=== PATIENT | male | born 1975 | race Caucasian/White ===

== ENCOUNTER → 2017-03-07 | Outpatient (CLI) | payer BC | END | disposition home or self-care (01) | LOC: RAD 11:02 | PROVIDERS: ATTEND Family Medicine | DX: I77.6 Arteritis, unspecified (principal) | CPT/HCPCS: 93882 ==

== ENCOUNTER → 2020-05-13 | Outpatient (CLI) | payer BC, MEDICAID ==
[~2020-05-13] MED LIST: ACET-1600 PO
[2020-05-13 11:00] LABS: ALBUMIN 4.4 g/dL (3.4-5.0); ANION GAP 7 mmol/L (5-15); CALCIUM 9.8 mg/dL (8.5-10.1); CHLORIDE 110 mmol/L (98-107)
[2020-05-13 11:02] LABS: BASOPHILS % (AUTO) 1 % (0-1); EOSINOPHILS % (AUTO) 0 % (1-7); LYMPHOCYTES % (AUTO) 23 % (22-44); MEAN CORPUSCULAR HEMOGLOBIN 31.9 pg (27.5-34.5); MEAN CORPUSCULAR HGB CONC 35.6 g/dL (33.2-36.2); MEAN PLATELET VOLUME 9.1 fL (7.4-10.4); MONOCYTES % (AUTO) 7 % (2-9); NEUTROPHILS % (AUTO) 69 % (42-75); PLATELET COUNT 326 x10^3/uL (130-400); RED BLOOD COUNT 5.37 x10^6/uL (4.38-5.82); RED CELL DISTRIBUTION WIDTH 13.7 % (9.4-14.8)
[2020-05-13 11:05] LABS: ALANINE AMINOTRANSFERASE 52 U/L (12-78); ALKALINE PHOSPHATASE 97 U/L (45-117); BILIRUBIN,TOTAL 0.6 mg/dL (0.2-1.0); TOTAL PROTEIN 7.9 g/dL (6.4-8.2)
[2020-05-13 11:06] LABS: MD NO
== END | disposition home or self-care (01) ==
LOC: STAR 09:21
PROVIDERS: ATTEND Colon & Rectal Surgery
DX: Z01.812 Encounter for preprocedural laboratory examination (principal); Z20.822 Contact with and (suspected) exposure to COVID-19
CPT/HCPCS: 80053; 85025; 87635; 93005

== ENCOUNTER 2020-05-19 09:25 | Inpatient (IN) | payer BC, MEDICAID ==
[~2020-05-19] VITALS: Ht 175.3 cm; Wt 70.7 kg
[2020-05-19] MEDS ORDERED: CHLORHEXIDINE 15 ML UDC MM STA (09:47)
[2020-05-19] MEDS ORDERED: CHLORHEXIDINE 15 ML UDC ONE (09:54)
[2020-05-19] MEDS ORDERED: LACTATED RINGERS 1,000 ML IV SCH ×2 (10:00→20:00)
[2020-05-19] MEDS ORDERED: FENTANYL PF 250 MCG/5ML ONE (13:06)
[2020-05-19] MEDS ORDERED: MIDAZOLAM 1 MG/ML, 2ML ONE (13:06)
[2020-05-19] MEDS ORDERED: INDOCYANINE GREEN 25 MG VIAL ONE (13:50)
[2020-05-19] MEDS ORDERED: BUPIVACAINE/PF 0.5% ONE (13:50)
[2020-05-19] MEDS ORDERED: hydrALAzine 20 MG/ML, 1ML ONE ×2 (14:15→15:05)
[2020-05-19] MEDS ORDERED: PROPOFOL 10 MG/ML, 20ML ONE (14:15)
[2020-05-19] MEDS ORDERED: DEXAMETHASONE 4 MG/ML, 1ML ONE ×2 (14:34)
[2020-05-19] MEDS ORDERED: CEFOTETAN 1 GM ONE ×2 (14:36)
[2020-05-19] MEDS ORDERED: ROCURONIUM 10MG/ML,5ML ONE ×2 (14:40)
[2020-05-19] MEDS ORDERED: PROMETHAZINE 25 MG/ML, 1ML IVPush PRN (15:30)
[2020-05-19] MEDS ORDERED: OXYcodone 5 MG/5 ML ORAL.SOL UDC PO PRN (15:30)
[2020-05-19] MEDS ORDERED: LABETALOL 5MG/ML, 20ML IV PRN (15:30)
[2020-05-19] MEDS ORDERED: hydrALAzine 20 MG/ML, 1ML IV PRN (15:30)
[2020-05-19] MEDS ORDERED: MEPERIDINE/PF 25MG/0.5ML IVPush PRN (15:30)
[2020-05-19] MEDS ORDERED: ACETAMINOPHEN 325 MG TABLET PO PRN (15:30)
[2020-05-19] MEDS ORDERED: ONDANSETRON 2MG/ML, 2ML IVPush PRN (15:30)
[2020-05-19] MEDS ORDERED: BUPIVACAINE/PF 0.25% ONE ×2 (16:05)
[2020-05-19] MEDS ORDERED: KETOROLAC 30 MG/1 ML ONE (16:38)
[2020-05-19] MEDS ORDERED: FENTANYL PF 100 MCG/2ML ONE ×4 (16:47→18:13)
[2020-05-19] MEDS: FENTANYL PF 100 MCG/2ML IV PRN ×5 (17:00→18:15)
[2020-05-19] MEDS ORDERED: ACETAMINOPHEN 650 MG/20.3 ML UDC ONE (17:01)
[2020-05-19] MEDS ORDERED: OXYcodone 5 MG/5 ML ORAL.SOL UDC ONE (17:02)
[2020-05-19] MEDS ORDERED: HYDROmorphone 1 MG/ML, 1ML INJ ONE (17:16)
[2020-05-19] MEDS: HYDROmorphone 1 MG/ML, 1ML INJ IVPush PRN ×4 (17:40→21:54)
[2020-05-19] MEDS ORDERED: ONDANSETRON 2MG/ML, 2ML ONE (18:11)
[2020-05-19 19:48] VITALS: BP 136/91
[2020-05-19] MEDS ORDERED: DIPHENHYDRAMINE 25 MG CAPSULE PO PRN (20:00)
[2020-05-19] MEDS ORDERED: DEXAMETHASONE 4 MG/ML, 1ML IVPush PRN (20:00)
[2020-05-19] MEDS ORDERED: CALCIUM CARBONATE 500 MG TAB.CHEW PO PRN (20:00)
[2020-05-19] MEDS ORDERED: HALOPERIDOL 5 MG/ML IVPush PRN (20:00)
[2020-05-19] MEDS ORDERED: SCOPOLAMINE PATCH, 1.5MG PATCH.TD72 TD PRN (20:00)
[2020-05-19] MEDS ORDERED: TRAZODONE 50MG TABLET PO PRN (20:00)
[2020-05-19] MEDS ORDERED: DIPHENHYDRAMINE 50 MG/ML, 1ML IVPush PRN (20:00)
[2020-05-19] MEDS ORDERED: LORazepam 2 MG/ML, 1ML IVPush PRN (20:00)
[2020-05-19] MEDS: LORazepam 1MG TABLET PO PRN (20:28)
[2020-05-19] MEDS: OXYcodone IR 5MG TABLET PO PRN (20:28)
[2020-05-20 00:07] VITALS: BP 112/64
[2020-05-20] MEDS: KETOROLAC 30 MG/1 ML IVPush SCH ×4 (00:08→17:49)
[2020-05-20] MEDS: ACETAMINOPHEN 500 MG TABLET PO SCH ×4 (00:08→17:49)
[2020-05-20] MEDS: OXYcodone IR 5MG TABLET PO PRN ×6 (00:08→21:07)
[2020-05-20] MEDS: HYDROmorphone 1 MG/ML, 1ML INJ IVPush PRN ×3 (02:49→11:16)
[2020-05-20 04:52] VITALS: BP 151/84
[2020-05-20 04:52] LABS: BASOPHILS % (AUTO) 0 % (0-1); EOSINOPHILS % (AUTO) 0 % (1-7); LYMPHOCYTES % (AUTO) 4 % (22-44); MEAN CORPUSCULAR HEMOGLOBIN 31.5 pg (27.5-34.5); MEAN CORPUSCULAR HGB CONC 35.1 g/dL (33.2-36.2); MEAN PLATELET VOLUME 9.2 fL (7.4-10.4); MONOCYTES % (AUTO) 3 % (2-9); NEUTROPHILS % (AUTO) 93 % (42-75); PLATELET COUNT 282 x10^3/uL (130-400); RED BLOOD COUNT 4.89 x10^6/uL (4.38-5.82); RED CELL DISTRIBUTION WIDTH 13.6 % (9.4-14.8)
[2020-05-20 04:55] LABS: ANION GAP 9 mmol/L (5-15); CALCIUM 8.7 mg/dL (8.5-10.1); CHLORIDE 107 mmol/L (98-107); CREATININE 1.09 mg/dL (0.7-1.3)
[2020-05-20 05:14] LABS: MD NO
[2020-05-20] MEDS: ENOXAPARIN 40 MG/0.4 ML SQ SCH (06:13)
[2020-05-20 07:09] VITALS: BP 117/78
[2020-05-20 13:39] VITALS: BP 110/63
[2020-05-20 19:52] VITALS: BP 123/78
[2020-05-21] MEDS: ACETAMINOPHEN 500 MG TABLET PO SCH ×5 (00:19→23:52)
[2020-05-21] MEDS: OXYcodone IR 5MG TABLET PO PRN ×6 (00:20→23:52)
[2020-05-21] MEDS: KETOROLAC 30 MG/1 ML IVPush SCH ×3 (00:20→11:47)
[2020-05-21 01:11] VITALS: BP 178/75
[2020-05-21 03:17] LABS: BASOPHILS % (AUTO) 0 % (0-1); EOSINOPHILS % (AUTO) 0 % (1-7); LYMPHOCYTES % (AUTO) 9 % (22-44); MEAN CORPUSCULAR HEMOGLOBIN 31.7 pg (27.5-34.5); MEAN CORPUSCULAR HGB CONC 35.3 g/dL (33.2-36.2); MONOCYTES % (AUTO) 6 % (2-9); NEUTROPHILS % (AUTO) 84 % (42-75); PLATELET COUNT 255 x10^3/uL (130-400); RED BLOOD COUNT 4.59 x10^6/uL (4.38-5.82); RED CELL DISTRIBUTION WIDTH 13.6 % (9.4-14.8)
[2020-05-21 03:28] LABS: ANION GAP 6 mmol/L (5-15); CALCIUM 8.4 mg/dL (8.5-10.1); CHLORIDE 110 mmol/L (98-107); CREATININE 0.96 mg/dL (0.7-1.3)
[2020-05-21 03:29] LABS: MD NO
[2020-05-21] MEDS: HYDROmorphone 1 MG/ML, 1ML INJ IVPush PRN ×3 (06:02→19:29)
[2020-05-21] MEDS: ENOXAPARIN 40 MG/0.4 ML SQ SCH (07:01)
[2020-05-21 07:10] VITALS: BP 129/81
[2020-05-21] MEDS: LORazepam 1MG TABLET PO PRN (07:31)
[2020-05-21] MEDS: PIPERACILLIN/TAZO/PMX 3.375GM 50 ML IV SCH ×3 (09:17→21:09)
[2020-05-21] MEDS: D5%-0.45NACL+KCL 20MEQ 1,000 ML IV SCH ×2 (09:17→22:42)
[2020-05-21] MEDS ORDERED: FENTANYL PF 250 MCG/5ML ONE ×2 (09:19→11:16)
[2020-05-21] MEDS ORDERED: EPINEPHRINE 1 MG/ML, 1ML ONE (09:27)
[2020-05-21] MEDS ORDERED: BUPIVACAINE/PF 0.5% ONE (09:27)
[2020-05-21] MEDS ORDERED: FENTANYL PF 100 MCG/2ML IV PRN (10:30)
[2020-05-21] MEDS ORDERED: EPHEDRINE 50 MG/ML, 1ML IVPush PRN (10:30)
[2020-05-21] MEDS ORDERED: ACETAMINOPHEN 325 MG TABLET PO PRN (10:30)
[2020-05-21] MEDS ORDERED: OXYcodone 5 MG/5 ML ORAL.SOL UDC PO PRN (10:30)
[2020-05-21] MEDS ORDERED: hydrALAzine 20 MG/ML, 1ML IV PRN (10:30)
[2020-05-21] MEDS ORDERED: METHOCARBAMOL 1,000 MG in DEXTROSE 5% 100 ML IV PRN (10:30)
[2020-05-21] MEDS ORDERED: LORazepam 2 MG/ML, 1ML IVPush PRN (10:30)
[2020-05-21] MEDS ORDERED: MEPERIDINE/PF 25MG/0.5ML IVPush PRN (10:30)
[2020-05-21] MEDS ORDERED: PROMETHAZINE 25 MG/ML, 1ML IVPush PRN (10:30)
[2020-05-21] MEDS ORDERED: ONDANSETRON 2MG/ML, 2ML IVPush PRN (10:30)
[2020-05-21] MEDS ORDERED: LABETALOL 5MG/ML, 20ML IV PRN (10:30)
[2020-05-21] MEDS ORDERED: HYDROmorphone 1 MG/ML, 1ML INJ IVPush PRN (10:30)
[2020-05-21] MEDS ORDERED: ROCURONIUM 10MG/ML,5ML ONE (12:04)
[2020-05-21] MEDS ORDERED: SUCCINYLCHOLINE 20 MG/ML, 10ML ONE (12:04)
[2020-05-21] MEDS ORDERED: NEOSTIGMINE 1 MG/ML, 10ML ONE (12:04)
[2020-05-21] MEDS ORDERED: GLYCOPYRROLATE 0.2MG/1ML, 5ML ONE (12:04)
[2020-05-21] MEDS ORDERED: ONDANSETRON 2MG/ML, 2ML ONE (12:04)
[2020-05-21] MEDS ORDERED: PROPOFOL 10 MG/ML, 20ML ONE (12:04)
[2020-05-21] MEDS ORDERED: CEFAZOLIN 1,000 MG ONE (12:04)
[2020-05-21] MEDS ORDERED: OXYcodone 5 MG/5 ML ORAL.SOL UDC ONE (12:51)
[2020-05-21 13:35] VITALS: BP 128/77
[2020-05-21] MEDS ORDERED: D5%-0.45NACL+KCL 20MEQ 1,000 ML IV SCH (14:30)
[2020-05-21 19:35] VITALS: BP 116/73
[2020-05-21 23:52] VITALS: BP 106/64
[2020-05-22 02:57] VITALS: BP 106/71
[2020-05-22] MEDS: OXYcodone IR 5MG TABLET PO PRN ×6 (02:59→20:48)
[2020-05-22] MEDS: PIPERACILLIN/TAZO/PMX 3.375GM 50 ML IV SCH ×4 (03:01→20:48)
[2020-05-22 03:18] LABS: ALBUMIN 2.4 g/dL (3.4-5.0); ANION GAP 6 mmol/L (5-15); CALCIUM 7.8 mg/dL (8.5-10.1); CHLORIDE 108 mmol/L (98-107); CREATININE 0.94 mg/dL (0.7-1.3)
[2020-05-22 03:21] LABS: BASOPHILS % (AUTO) 0 % (0-1); EOSINOPHILS % (AUTO) 0 % (1-7); LYMPHOCYTES % (AUTO) 11 % (22-44); MEAN CORPUSCULAR HEMOGLOBIN 32.4 pg (27.5-34.5); MEAN CORPUSCULAR HGB CONC 35.7 g/dL (33.2-36.2); MEAN PLATELET VOLUME 9.1 fL (7.4-10.4); MONOCYTES % (AUTO) 7 % (2-9); NEUTROPHILS % (AUTO) 81 % (42-75); PLATELET COUNT 209 x10^3/uL (130-400); RED BLOOD COUNT 3.98 x10^6/uL (4.38-5.82); RED CELL DISTRIBUTION WIDTH 13.7 % (9.4-14.8)
[2020-05-22 03:29] LABS: MD NO
[2020-05-22] MEDS: ACETAMINOPHEN 500 MG TABLET PO SCH ×3 (05:51→18:48)
[2020-05-22] MEDS: ENOXAPARIN 40 MG/0.4 ML SQ SCH (05:51)
[2020-05-22] MEDS: HYDROmorphone 1 MG/ML, 1ML INJ IVPush PRN ×5 (06:05→23:37)
[2020-05-22 07:10] VITALS: BP 101/67
[2020-05-22] MEDS: D5%-0.45NACL+KCL 20MEQ 1,000 ML IV SCH (08:34)
[2020-05-22 09:49] LABS: BASOPHILS % (AUTO) 0 % (0-1); EOSINOPHILS % (AUTO) 1 % (1-7); LYMPHOCYTES % (AUTO) 10 % (22-44); MEAN CORPUSCULAR HEMOGLOBIN 31.8 pg (27.5-34.5); MEAN CORPUSCULAR HGB CONC 34.9 g/dL (33.2-36.2); MEAN PLATELET VOLUME 8.6 fL (7.4-10.4); MONOCYTES % (AUTO) 6 % (2-9); NEUTROPHILS % (AUTO) 83 % (42-75); PLATELET COUNT 230 x10^3/uL (130-400); RED BLOOD COUNT 4.11 x10^6/uL (4.38-5.82); RED CELL DISTRIBUTION WIDTH 13.5 % (9.4-14.8)
[2020-05-22 09:56] LABS: MD NO
[2020-05-22 10:01] LABS: ANION GAP 6 mmol/L (5-15); CALCIUM 8.2 mg/dL (8.5-10.1); CHLORIDE 108 mmol/L (98-107); CREATININE 1.04 mg/dL (0.7-1.3)
[2020-05-22 13:39] VITALS: BP 122/78
[2020-05-22 19:41] VITALS: BP 133/82
[2020-05-23 00:06] VITALS: BP 115/71
[2020-05-23] MEDS: ACETAMINOPHEN 500 MG TABLET PO SCH ×4 (00:57→17:56)
[2020-05-23] MEDS: OXYcodone IR 5MG TABLET PO PRN ×5 (00:57→21:52)
[2020-05-23] MEDS: D5%-0.45NACL+KCL 20MEQ 1,000 ML IV SCH ×2 (01:01→15:40)
[2020-05-23] MEDS: PIPERACILLIN/TAZO/PMX 3.375GM 50 ML IV SCH ×3 (03:29→15:40)
[2020-05-23 04:04] LABS: ALBUMIN 2.3 g/dL (3.4-5.0); ANION GAP 6 mmol/L (5-15); CALCIUM 8.2 mg/dL (8.5-10.1); CHLORIDE 105 mmol/L (98-107); CREATININE 0.88 mg/dL (0.7-1.3)
[2020-05-23] MEDS: ENOXAPARIN 40 MG/0.4 ML SQ SCH (07:04)
[2020-05-23 08:48] VITALS: BP 120/78
[2020-05-23 09:10] LABS: BASOPHILS % (AUTO) 0 % (0-1); EOSINOPHILS % (AUTO) 1 % (1-7); LYMPHOCYTES % (AUTO) 8 % (22-44); MEAN CORPUSCULAR HEMOGLOBIN 31.4 pg (27.5-34.5); MEAN CORPUSCULAR HGB CONC 34.6 g/dL (33.2-36.2); MEAN PLATELET VOLUME 9.2 fL (7.4-10.4); MONOCYTES % (AUTO) 6 % (2-9); NEUTROPHILS % (AUTO) 85 % (42-75); PLATELET COUNT 298 x10^3/uL (130-400); RED BLOOD COUNT 4.38 x10^6/uL (4.38-5.82); RED CELL DISTRIBUTION WIDTH 13.3 % (9.4-14.8)
[2020-05-23 09:26] LABS: ANION GAP 7 mmol/L (5-15); CALCIUM 8.4 mg/dL (8.5-10.1); CHLORIDE 105 mmol/L (98-107)
[2020-05-23 09:27] LABS: CREATININE 1.01 mg/dL (0.7-1.3)
[2020-05-23 09:41] LABS: MD SCAN
[2020-05-23] MEDS: HYDROmorphone 1 MG/ML, 1ML INJ IVPush PRN ×2 (11:05→15:40)
[2020-05-23 13:10] VITALS: BP 132/76
[2020-05-23 13:15] VITALS: BP 132/76
[2020-05-23 20:14] VITALS: BP 120/76
[2020-05-23] MEDS ORDERED: CIPROFLOXACIN/DEXTROSE 200 MG/100 ML PREMIX IVPB SCH (21:00)
[2020-05-23] MEDS: METRONIDAZOLE PMX 500MG/100ML 100 ML IV SCH (21:52)
[2020-05-23] MEDS: CIPROFLOXACIN/PMX 400MG/200ML 200 ML IV SCH (22:59)
[2020-05-24 00:28] VITALS: BP 131/80
[2020-05-24] MEDS: ACETAMINOPHEN 500 MG TABLET PO SCH ×4 (01:26→18:37)
[2020-05-24] MEDS: OXYcodone IR 5MG TABLET PO PRN ×7 (01:56→22:46)
[2020-05-24] MEDS: HYDROmorphone 1 MG/ML, 1ML INJ IVPush PRN ×3 (02:58→15:56)
[2020-05-24 04:18] LABS: BASOPHILS % (AUTO) 0 % (0-1); EOSINOPHILS % (AUTO) 1 % (1-7); LYMPHOCYTES % (AUTO) 4 % (22-44); MEAN CORPUSCULAR HEMOGLOBIN 32.1 pg (27.5-34.5); MEAN CORPUSCULAR HGB CONC 35.6 g/dL (33.2-36.2); MEAN PLATELET VOLUME 8.9 fL (7.4-10.4); MONOCYTES % (AUTO) 7 % (2-9); NEUTROPHILS % (AUTO) 87 % (42-75); PLATELET COUNT 318 x10^3/uL (130-400); RED BLOOD COUNT 4.07 x10^6/uL (4.38-5.82); RED CELL DISTRIBUTION WIDTH 13.7 % (9.4-14.8)
[2020-05-24 04:25] LABS: ALBUMIN 2.2 g/dL (3.4-5.0); ANION GAP 5 mmol/L (5-15); CALCIUM 8.2 mg/dL (8.5-10.1); CHLORIDE 105 mmol/L (98-107)
[2020-05-24 04:26] LABS: CREATININE 0.79 mg/dL (0.7-1.3)
[2020-05-24 04:49] LABS: MD SCAN
[2020-05-24] MEDS: ENOXAPARIN 40 MG/0.4 ML SQ SCH (05:32)
[2020-05-24] MEDS: D5%-0.45NACL+KCL 20MEQ 1,000 ML IV SCH (05:32)
[2020-05-24] MEDS: METRONIDAZOLE PMX 500MG/100ML 100 ML IV SCH ×3 (05:32→21:06)
[2020-05-24 07:00] VITALS: BP 124/83
[2020-05-24 09:13] LABS: BASOPHILS % (AUTO) 0 % (0-1); EOSINOPHILS % (AUTO) 2 % (1-7); LYMPHOCYTES % (AUTO) 7 % (22-44); MEAN CORPUSCULAR HEMOGLOBIN 31.5 pg (27.5-34.5); MEAN CORPUSCULAR HGB CONC 35.1 g/dL (33.2-36.2); MEAN PLATELET VOLUME 8.5 fL (7.4-10.4); MONOCYTES % (AUTO) 7 % (2-9); NEUTROPHILS % (AUTO) 84 % (42-75); PLATELET COUNT 326 x10^3/uL (130-400); RED BLOOD COUNT 4.14 x10^6/uL (4.38-5.82); RED CELL DISTRIBUTION WIDTH 13.6 % (9.4-14.8)
[2020-05-24 09:19] LABS: ANION GAP 5 mmol/L (5-15); CALCIUM 8.4 mg/dL (8.5-10.1); CHLORIDE 104 mmol/L (98-107); CREATININE 0.85 mg/dL (0.7-1.3)
[2020-05-24 09:36] LABS: MD SCAN
[2020-05-24] MEDS: CIPROFLOXACIN/PMX 400MG/200ML 200 ML IV SCH ×2 (09:49→22:46)
[2020-05-24] MEDS ORDERED: LIDODERM 5% PATCH TD ONE (11:31)
[2020-05-24] MEDS: LIDODERM 5% PATCH TD SCH (11:37)
[2020-05-24 14:00] VITALS: BP 122/78
[2020-05-24 19:49] VITALS: BP 129/85
[2020-05-25] MEDS: HYDROmorphone 1 MG/ML, 1ML INJ IVPush PRN (00:11)
[2020-05-25] MEDS: OXYcodone IR 5MG TABLET PO PRN ×8 (01:50→23:09)
[2020-05-25 03:11] VITALS: BP 120/80
[2020-05-25] MEDS: ENOXAPARIN 40 MG/0.4 ML SQ SCH (05:16)
[2020-05-25] MEDS: ONDANSETRON 2MG/ML, 2ML IV PRN ×4 (05:16→22:06)
[2020-05-25 05:29] LABS: BASOPHILS % (AUTO) 0 % (0-1); EOSINOPHILS % (AUTO) 1 % (1-7); LYMPHOCYTES % (AUTO) 10 % (22-44); MEAN CORPUSCULAR HGB CONC 34.4 g/dL (33.2-36.2); MEAN PLATELET VOLUME 8.4 fL (7.4-10.4); MONOCYTES % (AUTO) 10 % (2-9); NEUTROPHILS % (AUTO) 79 % (42-75); PLATELET COUNT 362 x10^3/uL (130-400); RED BLOOD COUNT 4.09 x10^6/uL (4.38-5.82); RED CELL DISTRIBUTION WIDTH 13.9 % (9.4-14.8)
[2020-05-25 05:30] LABS: MD NO
[2020-05-25] MEDS: METRONIDAZOLE PMX 500MG/100ML 100 ML IV SCH ×3 (05:30→22:02)
[2020-05-25 05:39] LABS: ANION GAP 7 mmol/L (5-15); CALCIUM 8.3 mg/dL (8.5-10.1); CHLORIDE 102 mmol/L (98-107)
[2020-05-25 06:40] VITALS: BP 128/78
[2020-05-25] MEDS ORDERED: D5%-0.45NACL+KCL 20MEQ 1,000 ML IV SCH (08:30)
[2020-05-25 09:57] LABS: BASOPHILS % (AUTO) 0 % (0-1); EOSINOPHILS % (AUTO) 1 % (1-7); LYMPHOCYTES % (AUTO) 7 % (22-44); MEAN CORPUSCULAR HEMOGLOBIN 31.1 pg (27.5-34.5); MEAN CORPUSCULAR HGB CONC 34.6 g/dL (33.2-36.2); MEAN PLATELET VOLUME 8.4 fL (7.4-10.4); MONOCYTES % (AUTO) 10 % (2-9); NEUTROPHILS % (AUTO) 82 % (42-75); PLATELET COUNT 357 x10^3/uL (130-400); RED BLOOD COUNT 4.11 x10^6/uL (4.38-5.82); RED CELL DISTRIBUTION WIDTH 13.5 % (9.4-14.8)
[2020-05-25 10:07] LABS: ANION GAP 4 mmol/L (5-15); CALCIUM 8.5 mg/dL (8.5-10.1); CHLORIDE 102 mmol/L (98-107); CREATININE 0.88 mg/dL (0.7-1.3)
[2020-05-25 10:15] LABS: MD SCAN
[2020-05-25] MEDS: CIPROFLOXACIN/PMX 400MG/200ML 200 ML IV SCH ×2 (10:21→23:09)
[2020-05-25 12:00] VITALS: BP 127/80
[2020-05-25 14:01] VITALS: BP 135/85
[2020-05-25] MEDS: LIDODERM 5% PATCH TD SCH (18:28)
[2020-05-25 19:41] VITALS: BP 128/77
[2020-05-25] MEDS: LORazepam 1MG TABLET PO PRN (20:37)
[2020-05-26 01:13] VITALS: BP 120/76
[2020-05-26] MEDS: OXYcodone IR 5MG TABLET PO PRN ×6 (04:45→21:35)
[2020-05-26] MEDS: ENOXAPARIN 40 MG/0.4 ML SQ SCH (04:45)
[2020-05-26] MEDS: METRONIDAZOLE PMX 500MG/100ML 100 ML IV SCH (05:42)
[2020-05-26] MEDS: ONDANSETRON 2MG/ML, 2ML IV PRN ×2 (05:42→11:01)
[2020-05-26 05:47] LABS: BASOPHILS % (AUTO) 0 % (0-1); EOSINOPHILS % (AUTO) 1 % (1-7); LYMPHOCYTES % (AUTO) 10 % (22-44); MD NO; MEAN CORPUSCULAR HEMOGLOBIN 31.4 pg (27.5-34.5); MEAN CORPUSCULAR HGB CONC 34.7 g/dL (33.2-36.2); MEAN PLATELET VOLUME 8.1 fL (7.4-10.4); MONOCYTES % (AUTO) 11 % (2-9); NEUTROPHILS % (AUTO) 77 % (42-75); PLATELET COUNT 399 x10^3/uL (130-400); RED BLOOD COUNT 3.91 x10^6/uL (4.38-5.82); RED CELL DISTRIBUTION WIDTH 13.8 % (9.4-14.8)
[2020-05-26 07:57] VITALS: BP 114/74
[2020-05-26 09:51] LABS: MEAN CORPUSCULAR HEMOGLOBIN 31.1 pg (27.5-34.5); MEAN CORPUSCULAR HGB CONC 33.9 g/dL (33.2-36.2); PLATELET COUNT 466 x10^3/uL (130-400); RED BLOOD COUNT 4.58 x10^6/uL (4.38-5.82); RED CELL DISTRIBUTION WIDTH 13.8 % (9.4-14.8)
[2020-05-26 09:58] LABS: ANION GAP 8 mmol/L (5-15); CALCIUM 8.6 mg/dL (8.5-10.1); CHLORIDE 100 mmol/L (98-107); CREATININE 0.96 mg/dL (0.7-1.3)
[2020-05-26 10:11] LABS: MD YES
[2020-05-26 10:13] LABS: BAND#(MANUAL) 0.15 x10^3/uL; BANDS%(MANUAL) 1 % (0-7); LYMPH#(MANUAL) 1.67 x10^3/uL (1-3.4); LYMPHS% (MANUAL) 11 % (22-44); METAMYELOCYTES# (MANUAL) 0.76 x10^3/uL (0-0); METAMYELOCYTES% (MANUAL) 5 % (0-1); MONOS#(MANUAL) 0.76 x10^3/uL (0.3-2.7); MONOS% (MANUAL) 5 % (2-9); MYELOCYTES# (MANUAL) 0.15 x10^3/uL (0-0); MYELOCYTES% (MANUAL) 1 % (0-0); REACTIVE LYMPHS # (MANUAL) 0.15 x10^3/uL (0-0); REACTIVE LYMPHS % (MANUAL) 1 % (0-0); SEG#(MANUAL) 11.55 x10^3/uL (1.8-6.8); SEGS% (MANUAL) 76 % (42-75)
[2020-05-26 10:16] LABS: ANISOCYTOSIS 1+
[2020-05-26 10:17] LABS: <PLATELET ESTIMATE> INCREASED; <PLT MORPHOLOGY> NORMAL PLT MORPH; POLYCHROMASIA 1+; TOXIC GRAN 1+
[2020-05-26] MEDS: CIPROFLOXACIN/PMX 400MG/200ML 200 ML IV SCH (11:01)
[2020-05-26 12:09] VITALS: BP 110/71
[2020-05-26] MEDS: metroNIDAZOLE 500 MG TABLET PO SCH ×2 (14:25→21:35)
[2020-05-26] MEDS: LIDODERM 5% PATCH TD SCH (15:49)
[2020-05-26] MEDS: HYDROmorphone 1 MG/ML, 1ML INJ IVPush PRN ×2 (16:51→21:36)
[2020-05-26] MEDS: LORazepam 1MG TABLET PO PRN (18:43)
[2020-05-26] MEDS ORDERED: OMNIPAQUE 350 MG/ML, 100ML BOTTLE ONE (19:43)
[2020-05-26] MEDS: CIPROFLOXACIN 500 MG TABLET PO SCH (21:35)
[2020-05-26] MEDS: SODIUM CHLORIDE FLUSH 10ML SYR IVF SCH (21:36)
[2020-05-26 22:28] VITALS: BP 128/76
[2020-05-27 00:22] VITALS: BP 117/78
[2020-05-27] MEDS: OXYcodone IR 5MG TABLET PO PRN ×5 (01:08→14:08)
[2020-05-27] MEDS: ENOXAPARIN 40 MG/0.4 ML SQ SCH (04:51)
[2020-05-27] MEDS ORDERED: METR500T PO (07:28)
[2020-05-27] MEDS ORDERED: OXYC-380 PO (07:28)
[2020-05-27] MEDS ORDERED: CIPR500T87 PO (07:28)
[2020-05-27 07:36] VITALS: BP 118/80
[2020-05-27] MEDS: metroNIDAZOLE 500 MG TABLET PO SCH (08:26)
[2020-05-27] MEDS: CIPROFLOXACIN 500 MG TABLET PO SCH (08:26)
[2020-05-27] MEDS ORDERED: OXYC5CAP2 PO (08:35)
[2020-05-27] MEDS: SODIUM CHLORIDE FLUSH 10ML SYR IVF SCH (09:00)
[2020-05-27 09:25] LABS: BASOPHILS % (AUTO) 0 % (0-1); EOSINOPHILS % (AUTO) 1 % (1-7); LYMPHOCYTES % (AUTO) 9 % (22-44); MEAN CORPUSCULAR HEMOGLOBIN 31.5 pg (27.5-34.5); MEAN CORPUSCULAR HGB CONC 35.2 g/dL (33.2-36.2); MEAN PLATELET VOLUME 7.7 fL (7.4-10.4); MONOCYTES % (AUTO) 7 % (2-9); NEUTROPHILS % (AUTO) 82 % (42-75); PLATELET COUNT 467 x10^3/uL (130-400); RED BLOOD COUNT 3.94 x10^6/uL (4.38-5.82); RED CELL DISTRIBUTION WIDTH 13.3 % (9.4-14.8)
[2020-05-27 09:35] LABS: ANION GAP 6 mmol/L (5-15); CALCIUM 8.7 mg/dL (8.5-10.1); CHLORIDE 101 mmol/L (98-107)
[2020-05-27 09:47] LABS: MD SCAN
[2020-05-27 13:25] VITALS: BP 132/77
== END 2020-05-27 14:30 | disposition home health service (06) | DRG 329 ==
LOC: ORIP 09:32 → 4NE 19:20 → DCLOUNGE 05-27 14:28
PROVIDERS: ADMIT Colon & Rectal Surgery; ATTEND Colon & Rectal Surgery
PROC: 0DNL4ZZ Release Transverse Colon, Percutaneous Endoscopic Approach (ICD-10-PCS; 2020-05-19)
PROC: 8E0W4CZ Robotic Assisted Procedure of Trunk Region, Percutaneous Endoscopic Approach (ICD-10-PCS; 2020-05-19)
PROC: 0DTN4ZZ Resection of Sigmoid Colon, Percutaneous Endoscopic Approach (ICD-10-PCS; 2020-05-19 15:00)
PROC: 0D1B4Z4 Bypass Ileum to Cutaneous, Percutaneous Endoscopic Approach (ICD-10-PCS; 2020-05-21)
PROC: 0DQN4ZZ Repair Sigmoid Colon, Percutaneous Endoscopic Approach (ICD-10-PCS; 2020-05-21)
PROC: 0DJD8ZZ Inspection of Lower Intestinal Tract, Via Natural or Artificial Opening Endoscopic (ICD-10-PCS; 2020-05-21)
PROC: 0DB Gastrointestinal System, Excision (ICD-10-PCS; principal; 2020-05-21 09:30)
DX: K57.92 Diverticulitis of intestine, part unspecified, without perforation or abscess without bleeding (principal); K65.0 Generalized (acute) peritonitis; Z20.822 Contact with and (suspected) exposure to COVID-19; Y83.2 Surgical operation with anastomosis, bypass or graft as the cause of abnormal reaction of the patient, or of later complication, without mention of misadventure at the time of the procedure
CPT/HCPCS: 36415; S0020; 74177; 80048; 82040; 83735; 85014; 85018; 85025; 86850; 86900; 87635; 88307; C1729; G0378; J0171; J0690; J0744; J1100; J1170; J1650; J1885; J2250; J2405; J2543; J2704; J2710; J3010; Q9967; J0330; J0360; J3480; J7120; Q0163

== ENCOUNTER → 2020-07-25 | Outpatient (CLI) | payer BC, MEDICAID ==
[~2020-07-25] MED LIST changes: +CIPR500T87 PO; +METR500T PO; +OXYC-380 PO; +OXYC5CAP2 PO
== END | disposition home or self-care (01) ==
LOC: RAD 13:28
PROVIDERS: ATTEND Colon & Rectal Surgery
DX: K57.30 Diverticulosis of large intestine without perforation or abscess without bleeding (principal); K59.00 Constipation, unspecified
CPT/HCPCS: 74270

== ENCOUNTER 2020-08-15 09:41 | Outpatient (CLI) | payer BC, MEDICAID ==
[2020-08-15] MEDS ORDERED: ACET650S21 PO (11:10)
[2020-08-15] MEDS ORDERED: OMEP20TA62 PO (11:10)
[2020-08-15] MEDS ORDERED: IBUP-1223 PO (11:10)
[2020-08-21] MEDS ORDERED: OXYC1TAB14 PO (11:44)
== END 2020-08-15 23:59 | disposition home or self-care (01) ==
LOC: STAR 09:41
PROVIDERS: ATTEND Colon & Rectal Surgery
DX: Z02.9 Encounter for administrative examinations, unspecified (principal)